=== PATIENT | female | born 1985 | race Caucasian/White ===

== ENCOUNTER 2019-02-26 09:53 | Emergency (ER) | payer MEDICAID ==
[~2019-02-26] VITALS: Ht 160 cm; Wt 75.7 kg
[2019-02-26 10:08] VITALS: BP 148/95; Ht 160 cm; Wt 75.7 kg
== END 2019-02-26 10:54 | disposition home or self-care (01) ==
LOC: ED 09:53
DX: J06.9 Acute upper respiratory infection, unspecified (principal); E11.9 Type 2 diabetes mellitus without complications; F32.9 Major depressive disorder, single episode, unspecified; Z98.890 Other specified postprocedural states